=== PATIENT | female | born 1990 | race Caucasian/White ===

== ENCOUNTER 2016-12-16 14:14 | Emergency (ER) | payer SELFPAY ==
[~2016-12-16] VITALS: Ht 160 cm; Wt 72.6 kg
[2016-12-16 14:23] VITALS: BP 126/81
[2016-12-16] MEDS ORDERED: IBUP-1060 PO (14:23)
[2016-12-16] MEDS ORDERED: NAPROXEN 500 MG TABLET PO STA (14:49)
[2016-12-16] MEDS ORDERED: HYDROCODONE/APAP 5/325MG TABLET. PO ONE (15:00)
--- NOTE | 2016-12-16 15:56 | RAD ---
Indication pain associated with running 3 days previously. AP oblique and lateral views of the left knee were obtained as well as a sunrise view. There is irregularity involving the distal femur having a benign appearance likely reflecting a fibrous cortical defect. An acute finding is not seen. There is perhaps some degeneration in the area of the intercondylar notch. On the lateral view a loose body in the joint is not entirely excluded. There is a moderate joint effusion. MRI of the knee should be considered for additional evaluation
[2016-12-16] MEDS ORDERED: OXYC-323 PO (16:12)
--- NOTE | 2016-12-16 16:12 | PHYS DOC ---
Past Medical History Past Medical History: Migraines, Other Additional Past Medical Histor: pseudotumor cerebri Past Surgical History: Other Additional Past Surgical Histo: dental surgery Additional Information: 09/01 ppd Alcohol Use: Occasionally Drug Use: Marijuana Adult General Chief Complaint Chief Complaint: KNEE INJURY HPI HPI Patient is a 26 year old female with no significant medical history who presents today with moderate left medial and lateral knee pain that began 4 days ago after she hyperextended her left knee running. Patient states the pain is worse when she is ambulating. She states she was at work today at [employer], she states the pain was so severe that she was holding onto the racks moving around the store they had to send her home. Review of Systems Review of Systems Constitutional: Denies fever or chills [] Eyes: Denies change in visual acuity, redness, or eye pain [] Musculoskeletal: Left knee pain Integument: Denies rash or skin lesions [] Neurologic: Denies headache, focal weakness or sensory changes [] Endocrine: Denies polyuria or polydipsia [] Current Medications Current Medications Current Medications Medications (Trade) Dose Ordered Sig/Sandro Start Time Stop Time Status Last Admin Dose Admin Acetaminophen/ Hydrocodone Bitart (Lortab 5/325) 2 tab 1X ONCE 12/16/16 15:00 12/16/16 15:01 DC 12/16/16 15:14 2 TAB Naproxen (Naprosyn) 500 mg 1X STAT 12/16/16 14:49 12/16/16 14:51 DC Allergies Allergies Allergies Coded Allergies Type Severity Reaction Last Updated Verified No Known Drug Allergies 12/16/16 No Physical Exam Physical Exam Constitutional: Well developed, well nourished, no acute distress, non-toxic appearance. [] HENT: Normocephalic, atraumatic, bilateral external ears normal, oropharynx moist, no oral exudates, nose normal. [] Skin: Warm, dry, no erythema, no rash. [] Back: No tenderness, no CVA tenderness. [] Extremities: Left knee with no obvious deformity. moderate amount of soft tissue swelling diffusely throughout the left knee. Limited range of motion to the left knee, patient will not tolerate any manipulation of the left knee. +2 left pedal pulse. Cap refill less than 2 seconds left lower extremity. Sensation intact to the left lower extremity. Neurologic: Alert and oriented X 3, normal motor function, normal sensory function, no focal deficits noted. [] Psychologic: Affect normal, judgement normal, mood normal. [] Current Patient Data Vital Signs Vital Signs Date Time Temp Pulse Resp B/P Pulse Ox O2 Delivery O2 Flow Rate FiO2 12/16/16 14:23 97.9 97 16 97 Room Air 97.9 Lab Values Laboratory Tests Test 12/16/16 14:12 POC Urine HCG, Qualitative Hcg negative (Negative) EKG EKG [] Radiology/Procedures Radiology/Procedures []PROCEDURE: KNEE LEFT 4V Indication pain associated with running 3 days previously. AP oblique and lateral views of the left knee were obtained as well as a sunrise view. There is irregularity involving the distal femur having a benign appearance likely reflecting a fibrous cortical defect. An acute finding is not seen. There is perhaps some degeneration in the area of the intercondylar notch. On the lateral view a loose body in the joint is not entirely excluded. There is a moderate joint effusion. MRI of the knee should be considered for additional evaluation DICTATED and SIGNED BY: RADHA PEREZ MD DATE: 12/16/16 [id number] CC: TATYANA BONE APRN; NO PCP; NON,STAFF ~ Course & Med Decision Making Course & Med Decision Making Pertinent Labs and Imaging studies reviewed. (See chart for details) Patient is in the ED with left knee pain after hyperextending it 4 days ago. Left knee x-ray interpreted by radiologist as negative for any acute findings, this moderate amount of joint effusion noted on x-ray, there is irregularity involving the distal femur having a benign appearance likely reflecting a fibrous cortical defect. Radiologist recommended MRI for further evaluation. patient was provided an orthopedic doctor to follow up as an outpatient for MRI , immobilizer applied to the left knee that the electro mechanical technician, neurovascular exam done by ks post-immobilizer application is normal, and elevation encouraged Dragon Disclaimer Dragon Disclaimer This electronic medical record was generated, in whole or in part, using a voice recognition dictation system. Departure Departure Impression: Primary Impression: Left knee sprain Additional Impression: Joint effusion of knee Disposition: HOME, SELF-CARE Condition: STABLE Referrals: NO PCP (PCP) MARILY GAINES II, MD Please call the provided orthopedic doctor and follow-up as soon as you can Patient Instructions: Knee Sprain Additional Instructions: You were seen for left knee pain. Your left knee x-ray has no acute findings. It 's noted for joint effusion as well as a benign fibrous cortical defect to the distal femur. We highly recommend you follow-up with the provided orthopedic doctor as soon as possible and they will schedule you for MRI. Scripts Oxycodone/Apap 5-325 (Percocet 5-325 Mg Tablet)1 Each Tablet1-2 Tab PO Q4-6HRS # 20 TAB Prov:TATYANA BONE APRN 12/16/16 Problem Qualifiers Primary Impression: Left knee sprain Encounter type: initial encounter Involved ligament of knee: unspecified ligament Qualified Code: S83.92XA - Sprain of unspecified site of left knee, initial encounter TATYANA BONE APRN Dec 16, 2016 16:12
== END 2016-12-16 16:22 | disposition home or self-care (01) ==
LOC: ER 14:14
DX: S83.92XA Sprain of unspecified site of left knee, initial encounter (principal); M25.462 Effusion, left knee; G43.909 Migraine, unspecified, not intractable, without status migrainosus; F12.10 Cannabis abuse, uncomplicated; F17.200 Nicotine dependence, unspecified, uncomplicated; X50.1XXA Overexertion from prolonged static or awkward postures, initial encounter; X50.9XXA Other and unspecified overexertion or strenuous movements or postures, initial encounter; Y93.89 Activity, other specified; Y92.89 Other specified places as the place of occurrence of the external cause; Y99.8 Other external cause status
CPT/HCPCS: 29505; 73564; 81025; 84703; 99284-25